=== PATIENT | male | born 1975 | race African-American/Black ===

== ENCOUNTER 2018-09-26 18:55 | Emergency (ER) | payer SELFPAY ==
[~2018-09-26] VITALS: Ht 182.9 cm; Wt 89.0 kg
[~2018-09-26 18:55] MED LIST: NO MEDICATIONS REPORTED
[2018-09-26 21:15] VITALS: BP 144/92
[2018-09-26] MEDS ORDERED: KETOROLAC 30MG/ML VIAL IM ONE (21:30)
== END 2018-09-26 23:34 | disposition home or self-care (01) ==
LOC: ER 18:55
DX: M54.2 Cervicalgia (principal); M25.512 Pain in left shoulder; F17.200 Nicotine dependence, unspecified, uncomplicated; F12.10 Cannabis abuse, uncomplicated; J45.909 Unspecified asthma, uncomplicated; I10 Essential (primary) hypertension
CPT/HCPCS: 72125; 73030; 96372; 99284; J1885

== ENCOUNTER 2019-11-22 10:42 | Emergency (ER) | payer MEDICAID ==
[~2019-11-22] VITALS: Ht 182.9 cm; Wt 82.0 kg
[2019-11-22] MEDS ORDERED: tylenol (10:53)
[2019-11-22] MEDS ORDERED: KETOROLAC 30MG/ML VIAL IM ONE (11:15)
[2019-11-22 11:38] VITALS: BP 149/79
== END 2019-11-22 12:13 | disposition home or self-care (01) ==
LOC: ER 10:42
DX: M54.2 Cervicalgia (principal); J45.909 Unspecified asthma, uncomplicated
CPT/HCPCS: 96372; 99283; J1885

== ENCOUNTER 2021-05-29 22:42 | Emergency (ER) | payer MEDICAID ==
[~2021-05-29] VITALS: Ht 182.9 cm; Wt 94.9 kg
[~2021-05-29 22:42] MED LIST changes: +tylenol
[2021-05-29 22:52] VITALS: BP 143/118
== END 2021-05-30 02:35 | disposition left against medical advice (07) ==
LOC: ER 22:42
DX: Z53.21 Procedure and treatment not carried out due to patient leaving prior to being seen by health care provider (principal)

== ENCOUNTER 2021-05-31 21:47 | Emergency (ER) | payer MEDICAID ==
[~2021-05-31] VITALS: Ht 182.9 cm; Wt 93.0 kg
[2021-06-01 03:42] LABS: BASOPHILS % 1.4 % (0.0-2.0); EOSINOPHILS % 3.6 % (0.0-5.0); HEMATOCRIT. 46.9 % (42.0-52.0); HEMOGLOBIN. 15.5 g/dL (14.0-18.0); LYMPHOCYTES % 31.4 % (20.0-50.0); MEAN CORPUSCULAR HEMOGLOBIN 30.5 pg (28.0-32.0); MEAN CORPUSCULAR VOLUME 92.3 fL (80.0-94.0); MONOCYTES % 9.9 % (2.0-8.0); NEUTROPHILS % 53.7 % (40.0-76.0); PLATELET 349 x1000/uL (130-400); RED BLOOD CELL COUNT 5.08 mill/uL (4.7-6.1); RED CELL DISTRIBUTION WIDTH 13.6 % (11.6-14.6)
[2021-06-01 03:49] LABS: CHLORIDE 111 mEq/L (98-107)
[2021-06-01] MEDS ORDERED: IBUP-2028 MT (05:14)
[2021-06-01 05:31] VITALS: BP 115/78
== END 2021-06-01 05:34 | disposition home or self-care (01) ==
LOC: ER 21:47
DX: B34.9 Viral infection, unspecified (principal); J45.909 Unspecified asthma, uncomplicated; Z86.61 Personal history of infections of the central nervous system
CPT/HCPCS: 36415; 71045; 80053; 83880; 84484; 85025; 93005; 99285

== ENCOUNTER 2022-06-10 08:04 | Emergency (ER) | payer MEDICAID, OTHER ==
[~2022-06-10] VITALS: Ht 177.8 cm; Wt 104.0 kg
[~2022-06-10 08:04] MED LIST changes: +IBUP-2028 MT
[2022-06-10 10:30] VITALS: BP 106/92
[2022-06-10] MEDS ORDERED: HYDROCODONE/ACETAMINOPHEN 5/325MG TABLET PO ONE (10:30)
[2022-06-10] MEDS ORDERED: AMOX1TAB16 MT (12:16)
[2022-06-10] MEDS ORDERED: HYDR-4001 MT (12:17)
== END 2022-06-10 13:13 | disposition home or self-care (01) ==
LOC: ER 08:04
DX: S02.609A Fracture of mandible, unspecified, initial encounter for closed fracture (principal); J45.909 Unspecified asthma, uncomplicated; X58.XXXA Exposure to other specified factors, initial encounter; Y93.89 Activity, other specified; Y92.89 Other specified places as the place of occurrence of the external cause; Y99.8 Other external cause status
CPT/HCPCS: 70486; 99284

== ENCOUNTER 2022-07-24 06:47 | Emergency (ER) | payer OTHER ==
[~2022-07-24] VITALS: Ht 182.9 cm; Wt 103.7 kg
[~2022-07-24 06:47] MED LIST changes: +AMOX1TAB16 MT; +HYDR-4001 MT
[2022-07-24] MEDS ORDERED: METH-653 MT (08:23)
[2022-07-24 08:27] VITALS: BP 141/85
[2022-07-24] MEDS ORDERED: KETOROLAC 60MG/2ML VIAL IM ONE (08:30)
== END 2022-07-24 08:50 | disposition home or self-care (01) ==
LOC: ER 06:47
DX: M43.6 Torticollis (principal); R03.0 Elevated blood-pressure reading, without diagnosis of hypertension; Z68.31 Body mass index [BMI] 31.0-31.9, adult
CPT/HCPCS: 96372; 99283; J1885

== ENCOUNTER 2022-07-27 10:24 | Emergency (ER) | payer OTHER ==
[~2022-07-27] VITALS: Ht 182.9 cm; Wt 104.0 kg
[~2022-07-27 10:24] MED LIST changes: +METH-653 MT
[2022-07-27] MEDS ORDERED: LORAZEPAM 0.5MG TABLET PO ONE (15:45)
[2022-07-27] MEDS ORDERED: KETOROLAC 60MG/2ML VIAL IM ONE (15:45)
[2022-07-27 16:09] VITALS: BP 132/80
== END 2022-07-27 16:42 | disposition home or self-care (01) ==
LOC: ER 10:24
DX: S13.9XXA Sprain of joints and ligaments of unspecified parts of neck, initial encounter (principal); S46.812A Strain of other muscles, fascia and tendons at shoulder and upper arm level, left arm, initial encounter; S16.1XXA Strain of muscle, fascia and tendon at neck level, initial encounter; S43.492A Other sprain of left shoulder joint, initial encounter; X58.XXXA Exposure to other specified factors, initial encounter; Y93.89 Activity, other specified; Y92.89 Other specified places as the place of occurrence of the external cause; Y99.8 Other external cause status; Z79.899 Other long term (current) drug therapy
CPT/HCPCS: 93005; 96372; 99283; J1885

== ENCOUNTER 2023-05-29 20:37 | Emergency (ER) | payer OTHER ==
[~2023-05-29] VITALS: Ht 180.3 cm; Wt 102.0 kg
[2023-05-29 20:49] VITALS: O2SAT 97
[2023-05-29 21:16] LABS: BASOPHILS % 1.3 % (0.0-2.0); EOSINOPHILS % 2.9 % (0.0-5.0); HEMATOCRIT. 46.3 % (42.0-52.0); HEMOGLOBIN. 15.8 g/dL (14.0-18.0); LYMPHOCYTES % 28.1 % (20.0-50.0); MEAN CORPUSCULAR HEMOGLOBIN 31.1 pg (28.0-32.0); MEAN CORPUSCULAR HGB CONC 34.1 g/dL (31.0-37.0); MEAN CORPUSCULAR VOLUME 91.3 fL (80.0-94.0); MONOCYTES % 11.3 % (2.0-8.0); NEUTROPHILS % 56.4 % (40.0-76.0); PLATELET 400 x1000/uL (130-400); RED BLOOD CELL COUNT 5.07 mill/uL (4.7-6.1); RED CELL DISTRIBUTION WIDTH 13.5 % (11.6-14.6); WHITE BLOOD COUNT 9.9 x1000/uL (4.5-11.0)
[2023-05-29 21:22] LABS: CHLORIDE 102 mEq/L (98-107); INDEX HEMOLYSI 1 (1-3); INDEX ICTERIC 1 (1-4); INDEX LIPEMIC 1 (1-3); POTASSIUM 3.8 mEq/L (3.5-5.1); SODIUM 135 mEq/L (136-145)
[2023-05-29 21:27] LABS: CLARITY URINE CLEAR (CLEAR); COLOR URINE YELLOW (YELLOW); GLUCOSE URINE NEGATIVE (NEGATIVE); KETONES URINE NEGATIVE (NEGATIVE); LEUKOCYTE ESTERASE URINE NEGATIVE (NEGATIVE); NITRITE URINE NEGATIVE (NEGATIVE); OCCULT BLOOD URINE NEGATIVE (NEGATIVE); PROTEIN URINE NEGATIVE (NEGATIVE); SPECIFIC GRAVITY URINE 1.015 (1.005-1.030); UROBILINOGEN URINE 0.2 E.U./dL (0.2-1.0)
[2023-05-29 21:30] LABS: ALANINE AMINOTRANSFERASE 35 IU/L (13-61); ALBUMIN 4.1 g/dL (3.4-5.0); ASPARTATE AMINOTRANSFERASE 20 IU/L (15-37); BILIRUBIN TOTAL 0.6 mg/dL (0.1-1.0); CALCIUM 9.3 mg/dL (8.5-10.1); CARBON DIOXIDE 28 mEq/L (21-32); CREATININE 1.2 mg/dL (0.6-1.3); GLUCOSE 119 mg/dL (70-105); PROTEIN TOTAL 7.7 g/dL (6.0-8.3); UREA NITROGEN BLOOD 13 mg/dL (7-21)
[2023-05-29] MEDS ORDERED: KETOROLAC 30MG/ML VIAL IV STA (22:01)
[2023-05-29] MEDS ORDERED: FAMOTIDINE 20MG/2ML VIAL IV STA (22:01)
[2023-05-29] MEDS ORDERED: SODIUM CHLORIDE 0.9% 1,000 ML IV ONE (22:15)
[2023-05-29 22:30] VITALS: BP 126/78
[2023-05-30] MEDS ORDERED: ACET-2708 MT (01:37)
[2023-05-30 01:45] VITALS: PULSE 109; RESP 17; TEMP 98.7
== END 2023-05-30 01:46 | disposition home or self-care (01) ==
LOC: ER 20:37
DX: R10.9 Unspecified abdominal pain (principal); J45.909 Unspecified asthma, uncomplicated
CPT/HCPCS: 80053; 81003; 83690; 85025; 36415; 74176; 96361; 96374; 96375; 99285; J3490; J1885; J7030; Z7610 ×2

== ENCOUNTER 2024-11-22 03:43 | Emergency (ER) | payer OTHER ==
[~2024-11-22] VITALS: Ht 180.3 cm; Wt 98.2 kg
[~2024-11-22 03:43] MED LIST changes: +ACET-2708 MT
[2024-11-22 04:24] VITALS: O2SAT 99
[2024-11-22 04:34] VITALS: TEMP 36.6; O2SAT 100
[2024-11-22 05:33] VITALS: BP 138/87; PULSE 87; RESP 18
[2024-11-22] MEDS: KETOROLAC 15MG/ML VIAL IM ONE (05:33)
[2024-11-22] MEDS: LIDOCAINE 5% PATCH TOP SCH (05:42)
[2024-11-22] MEDS ORDERED: METH-653 MT (06:05)
[2024-11-22] MEDS ORDERED: IBUP-2029 MT (06:05)
== END 2024-11-22 06:20 | disposition home or self-care (01) ==
LOC: ER 03:43
DX: S46.912A Strain of unspecified muscle, fascia and tendon at shoulder and upper arm level, left arm, initial encounter (principal); J45.909 Unspecified asthma, uncomplicated; X58.XXXA Exposure to other specified factors, initial encounter; Y93.67 Activity, basketball; Y92.89 Other specified places as the place of occurrence of the external cause; Y99.8 Other external cause status
CPT/HCPCS: 99283; 73030; 96372; J1885

== ENCOUNTER 2025-05-03 00:31 | Emergency (ER) | payer OTHER ==
[~2025-05-03] VITALS: Ht 180.3 cm; Wt 100.1 kg
[~2025-05-03 00:31] MED LIST changes: +IBUP-2029 MT
[2025-05-03] MEDS ORDERED: METHYLPREDNISOLONE 40MG/ML INJ IV ONE (01:00)
[2025-05-03 01:10] LABS: BASOPHILS % 1.1 % (0.0-2.0); EOSINOPHILS % 0.3 % (0.0-5.0); HEMATOCRIT. 47.4 % (42.0-52.0); HEMOGLOBIN. 16.0 g/dL (14.0-18.0); LYMPHOCYTES % 19.3 % (20.0-50.0); MEAN PLATELET VOLUME 7.8 fl (7.4-10.4); MONOCYTES % 12.2 % (2.0-8.0); NEUTROPHILS % 67.1 % (40.0-76.0); PLATELET 450 x1000/uL (130-400); RED BLOOD CELL COUNT 5.20 mill/uL (4.7-6.1); RED CELL DISTRIBUTION WIDTH 14.0 % (11.6-14.6)
[2025-05-03 01:26] LABS: CREATININE 1.4 mg/dL (0.6-1.3); UREA NITROGEN BLOOD 7 mg/dL (9-23)
[2025-05-03] MEDS: METHYLPREDNISOLONE SOD SUCC 125MG/2ML (ACT-O-VIAL) IV NR (01:39)
[2025-05-03] MEDS: KETOROLAC 15MG/ML VIAL IM ONE (01:40)
[2025-05-03 01:57] VITALS: PULSE 103; RESP 14; O2SAT 98
[2025-05-03] MEDS: IPRATROPIUM/ALBUTEROL 0.5-3(2.5)MG/3ML NEB HHN ONE (01:58)
[2025-05-03] MEDS ORDERED: ALBU18HF2 IH (03:22)
[2025-05-03] MEDS ORDERED: PRED5TAB48 MT (03:22)
[2025-05-03 03:52] VITALS: BP 129/91; PULSE 92; RESP 16; TEMP 37.1; O2SAT 98
== END 2025-05-03 03:57 | disposition home or self-care (01) ==
LOC: ER 00:31
DX: M79.18 Myalgia, other site (principal); J45.901 Unspecified asthma with (acute) exacerbation; I25.2 Old myocardial infarction; Z91.148 Patient's other noncompliance with medication regimen for other reason; Z79.899 Other long term (current) drug therapy
CPT/HCPCS: 80048; 85025; 36415; 71045; 94640; 93005; 96372; 96374; 99285; J1885; J2919; Z7610 ×3; 94070